=== PATIENT | male | born 1985 | race African-American/Black ===

== ENCOUNTER 2019-09-16 22:46 | Emergency (ER) | payer OTHER ==
[~2019-09-16] VITALS: Ht 182.9 cm; Wt 99.8 kg
--- NOTE | 2019-09-16 22:52 | Emergency Room Report ---
History of Present Illness General Chief Complaint: Possible seizure Source: Patient, EMS (Brian Taylor MD) Present Illness HPI Disclaimer: Please note that this report is being documented using DRAGON technology. This can lead to erroneous entry secondary to incorrect interpretation by the dictating instrument. HPI: 33-year-old male with no reported medical history presents for evaluation of possible seizure. Patient states he went to bed approximately 9:30 PM but was awakened by his girlfriend approximately 30 minutes prior to arrival. She describes some rhythmic jerking in his extremities and noted some minor blood coming out of his mouth. She was able to wake him up but he was reportedly groggy. Patient has no recollection of this. On EMS arrival he was awake alert and conversant. He is complaining of bilateral posterior shoulder pain difficulty abducting his arms. He denies any recent fall or injury though approximately 3 months ago he had a syncopal episode and was seen at outside hospital. They recommended head imaging at this time which he has not yet followed up on. He does not see a PMD regularly. Currently denies any headache , visual changes, neck or back pain, nausea, vomiting, diarrhea. He reports 1- 2 beers a day but denies heavy alcohol use. He drank 1 beer and 1 hard seltzer earlier today. Denies drug use. No prior history of seizure-like activity. Does not take any medications. PMH: Denies PSH: Denies Allergies: Denies Social Hx: Regular alcohol use (Brian Taylor MD) Allergies: Coded Allergies: No Known Allergies (Unverified , 09/16/19) Review of Systems All Other Systems: negative except mentioned in HPI (Brian Taylor MD) Physical Exam Vital Signs Date Time Temp Pulse Resp B/P (MAP) Pulse Ox O2 Delivery O2 Flow Rate FiO2 09/16/19 22:46 98.8 88 20 147/68 (94) 97 Room Air General: Awake and alert, no acute distress HEENT: NC/AT. EOMI. PERRLA. Visual desir are full. No nystagmus. Facial expressions are symmetrical. No facial droop. Abrasions over the right side of the tongue. No large lacerations noted. Cardiovascular: RRR. S1 and S2 normal. No murmur appreciated Resp: Normal work of breathing. No cough, wheezing or crackles appreciated Abdomen: Abdomen is soft, nondistended. Nontender Skin: Intact. No abrasions, laceration or rash over the exposed skin. Tongue abrasions as described above MSK: Normal tone and bulk. Moving all extremities. No obvious deformity though patient's body habitus makes it difficult to fully appreciate. Patient has difficulty with abduction of both shoulders. Tender palpation of the posterior aspect of the shoulders. No tenderness over the superior, inferior or anterior aspect. Sensation is intact distally. No pain in the elbows, wrists or digits. Neuro: Awake and alert. Mentating appropriately. Facial expression symmetrical. No dysarthria, no ataxia on [id number]-[id number]-[id number] or gnpt-lj-[id number] testing. Sensation to light touch is intact over the upper and lower extremities. The patient has intact speech with good repetition, comprehension. Fund of knowledge is full. (Brian Taylor MD) Procedures Joint Reduction Joint Reduction : Consent: Written Joint Reduction Site: shoulder (R), shoulder (L) Procedural Sedation: Yes Reduction Attempts: Other - 1 attempt right shoulder, 2 attempts left shoulder Pre-Procedure NV Exam: Yes Post-Procedure NV Exam: Yes Post Joint Reduction Film: Right shoulder successfully reduced first attempt , left shoulder not reduced after 2 attempts Patient Tolerated: Well Complications: None (Brian Taylor MD) Procedural Sedation Consent: Written Time out called at: 01:45 Airway Assessment (Malampati): I Heart: normal Lungs: normal Plan for Moderate Sedation: Propofol ASA Score: I Procedure Narrative Patient went procedural sedation with 50 mg ketamine and a total of 400 mg propofol given multiple intervals. See nursing documentation for full details. Start time for sedation was 0145 and end time was 0224. Patient returned to presedation neurologic baseline immediately after. No vomiting, no nausea, no respiratory depression, no apnea, no complications of any kind. Tolerated well. Start Time: 01:45 End Time: 02:24 Mental Status: Awake Respiration: Unlabored Nausea: NO Vomiting: NO Additional Comments: Sedation #2 Start time 0429 Total of 180 mg propofol given in divided doses, see nursing documentation for full details End time: 044 Total time: 12 minutes No complications. No apnea. No vomiting. No nausea. Patient returned to his full neurologic baseline Performed by co, Dr. Brian Taylor (Brian Taylor MD) Medical Decision Making Diagnostic Impression: Primary Impression: Seizure Additional Impressions: Dislocation of shoulder, posterior, right, closed Dislocation of shoulder, posterior, left, closed ER Course This is a 33-year-old male arriving by EMS for evaluation of possible seizure. Concern for focal and generalized seizure, alcohol withdrawal, drug use, electrolyte abnormality, intracranial lesion. He has an abrasion to his tongue, reported postictal phase now resolved but no urinary incontinence was noted. No prior history of seizure. He does report a recent head injury 3 months ago has not yet obtained outpatient CT scan or followed up with a PMD. Will obtain CT scan of the head, load with Keppra, draw broad labs and obtain bilateral x- rays of the shoulder for concern of possible dislocation in the setting of possible seizure. 0430: CT scan of the head and labs returned within normal limits. X-ray of his shoulders were concerning for bilateral posterior dislocation. CT scan confirmed showing reverse Hill-Sachs deformities and subluxation posteriorly. Patient underwent sedation using ketamine and propofol. Initial x-rays show adequate reduction of the right shoulder however the left shoulder remained subluxed. Attempted to reduce again under moderate sedation however this attempt was unsuccessful. Patient returned to his neurologic baseline. 0630: Reevaluated patient at bedside for possible repeat attempt at reduction however the patient states his pain improved. While he was asleep he may have reduced on his own. He is now able to range the left upper extremity. No palpable deformity. Repeat x-ray is pending. Will sign out to oncoming physician pending x-ray and final disposition. Laboratory Tests Test 09/16/19 22:57 09/16/19 23:23 White Blood Count 10.6 K/UL (4.8-10.8) Red Blood Count 4.66 M/UL (4.70-6.10) L Hemoglobin 14.6 G/DL (14.2-18.0) Hematocrit 44.1 % (42.0-52.0) Mean Corpuscular Volume 94 FL (80-99) Mean Corpuscular Hemoglobin 31.3 PG (27.0-31.0) H Mean Corpuscular Hemoglobin Concent 33.1 G/DL (32.0-36.0) Red Cell Distribution Width 13.5 % (11.6-14.8) Platelet Count 180 K/UL (150-450) Mean Platelet Volume 10.0 FL (6.5-10.1) Neutrophils (%) (Auto) 58.7 % (45.0-75.0) Lymphocytes (%) (Auto) 30.6 % (20.0-45.0) Monocytes (%) (Auto) 4.5 % (1.0-10.0) Eosinophils (%) (Auto) 5.2 % (0.0-3.0) H Basophils (%) (Auto) 1.1 % (0.0-2.0) Sodium Level 137 MMOL/L (136-145) Potassium Level 3.9 MMOL/L (3.5-5.1) Chloride Level 101 MMOL/L (98-107) Carbon Dioxide Level 26 MMOL/L (21-32) Anion Gap 10 mmol/L (5-15) Blood Urea Nitrogen 13 mg/dL (7-18) Creatinine 1.5 MG/DL (0.55-1.30) H Estimated Glomerular Filtration Rate > 60 mL/min (>60) Glucose Level 118 MG/DL (74-106) H Calcium Level 8.9 MG/DL (8.5-10.1) Total Bilirubin 0.3 MG/DL (0.2-1.0) Aspartate Amino Transferase (AST) 21 U/L (15-37) Alanine Aminotransferase (ALT) 27 U/L (12-78) Alkaline Phosphatase 51 U/L (46-116) Total Creatine Kinase 218 U/L (26-308) Troponin I 0.000 ng/mL (0.000-0.056) Total Protein 8.2 G/DL (6.4-8.2) Albumin 4.0 G/DL (3.4-5.0) Globulin 4.2 g/dL Albumin/Globulin Ratio 1.0 (1.0-2.7) Serum Alcohol < 3 mg/dL Urine Color Pale yellow Urine Appearance Clear Urine pH 6.5 (4.5-8.0) Urine Specific [place] 1.025 (1.005-1.035) Urine Protein 1+ (NEGATIVE) H Urine Glucose (UA) Negative (NEGATIVE) Urine Ketones 1+ (NEGATIVE) H Urine Blood 1+ (NEGATIVE) H Urine Nitrite Negative (NEGATIVE) Urine Bilirubin Negative (NEGATIVE) Urine Urobilinogen Normal MG/DL (0.0-1.0) Urine Leukocyte Esterase Negative (NEGATIVE) Urine RBC 0-2 /HPF (0 - 0) H Urine WBC 0 /HPF (0 - 0) Urine Squamous Epithelial Cells None /LPF (NONE/OCC) Urine Bacteria None /HPF (NONE) Urine Opiates Screen Negative (NEGATIVE) Urine Barbiturates Screen Negative (NEGATIVE) Phencyclidine (PCP) Screen Negative (NEGATIVE) Urine Amphetamines Screen Negative (NEGATIVE) Urine Benzodiazepines Screen Negative (NEGATIVE) Urine Cocaine Screen Negative (NEGATIVE) Urine Marijuana (THC) Screen Positive (NEGATIVE) H (Brian Taylor MD) ER Course Patient signed out to me pending repeat x-ray. Patient had bilateral posterior shoulder dislocations reduced by previous physician. There was some concern for persistent dislocation of the left shoulder however on our assessment this morning patient had good range of motion and pain had dramatically improved. Repeat x-ray of the left shoulder appeared to have improved alignment to me. Patient was placed in bilateral shoulder immobilizers. Regarding his seizures he was started on Keppra. He will be discharged with pain control. I discussed the case with orthopedics, Dr. Mckeon who recommended immobilization for 2 weeks and urgent orthopedic follow-up. Patient was instructed to call his primary physician and insurance to assist in arranging outpatient follow-up. Patient stable for discharge with return precautions. (Jose David Ba M.D.) EKG Diagnostic Results EKG Time: 22:50 Rate: normal Rhythm: NSR Other Impression Sinus rhythm, normal axis, normal intervals, isolated Q wave in III. Otherwise normal EKG. (Brian Taylor MD) Rhythm Strip Diag. Results Rhythm Strip Time: 22:50 EP Interpretation: yes Rate: 70s Rhythm: NSR, no PVC's, no ectopy (Brian Taylor MD) Other X-Ray Diagnostic Results Other X-Ray Diagnostic Results #1: X-Ray ordered: Left shoulder # of Views/Limited Vs Complete: Complete Indication: Pain EP Interpretation: Yes Interpretation: no soft tissue swelling, no fractures, other - Concern for posterior dislocation Impression: Other - Posterior dislocation Electronically Signed by: Electronically signed by Dr. Brian Taylor Other X-Ray Diagnostic Results #2: X-Ray ordered: Right shoulder # of Views/Limited Vs Complete: Complete Indication: Pain EP Interpretation: Yes Interpretation: no soft tissue swelling, no fractures, other - Concern for posterior dislocation Impression: Other - Posterior dislocation Electronically Signed by: Electronically signed by Dr. Brian Taylor Other X-Ray Diagnostic Results #3: X-Ray ordered: Right shoulder post reduction Indication: Other EP Interpretation: Yes Interpretation: other - Reverse Hill-Sachs deformity, satisfactory reduction of posterior dislocation Impression: Other - Satisfactory reduction of posterior dislocation with reverse Hill-Sachs deformity Electronically Signed by: Electronically signed by Dr. Brian Taylor Other X-Ray Diagnostic Results #4: X-Ray ordered: Left shoulder post reduction #1 # of Views/Limited Vs Complete: Complete Indication: Pain EP Interpretation: Yes Interpretation: no soft tissue swelling, other - Persistent subluxation left humeral head with reverse Hill-Sachs deformity Impression: Other - Persistent posterior dislocation with reverse Hill- Sachs deformity Electronically Signed by: Electronically signed by Dr. Brian Taylor (Brian Taylor MD) Disposition: HOME, SELF-CARE Condition: Improved Scripts Hydrocodone Bit/Acetaminophen 5-325* (NORCO 5-325 TABLET*) 1 Each Tablet 1 TAB ORAL Q6H PRN for FOR PAIN, #10 TAB 0 Refills Prov: Jose David aB M.D. 09/17/19 Ibuprofen* (MOTRIN*) 600 Mg Tablet 600 MG ORAL Q6H PRN for For Pain, #30 TAB 0 Refills Prov: Jose David Ba M.D. 09/17/19 Levetiracetam (KEPPRA) 500 Mg Tablet 500 MG ORAL EVERY 12 HOURS for 30 Days, #60 TAB 0 Refills Prov: Jose David Ba M.D. 09/17/19 Brian Taylor MD Sep 16, 2019 22:52 Jose David Ba M.D. Sep 17, 2019 07:49
--- NOTE | 2019-09-16 22:59 | NUR ---
ED Nurse Note: Seizure precautions initiated, seizure pads applied. patient on monitor, no acute distress noted.
--- NOTE | 2019-09-16 22:59 | NUR ---
ED Nurse Note: Patient brought in by ambulance [id number] from home d/t witnessed possible seizure, per EMS patient's girlfriend witnessed facial seizure movement approximately 30 minutes in duration. Patient aao x 4 and ambulatory upon arrival. Patient no reports of medical history, pt states this was the first time he has had a possible seizure. Patient c/o shoulder pain aching 10/10, unable to move upper extremities d/t pain, nonradiating, states it is a first time occurrence. Patient placed on monitor and changed into gown. No acute distress noted during assessment. Patient taken to CT. IV established by CEASAR Alvarado. Blood samples sent to lab.
[2019-09-16 23:01] VITALS: BP 148/101
[2019-09-16 23:16] LABS: BASOPHILS % (AUTO) 1.1 % (0.0-2.0); EOSINOPHILS % (AUTO) 5.2 % (0.0-3.0); HEMATOCRIT 44.1 % (42.0-52.0); HEMOGLOBIN 14.6 G/DL (14.2-18.0); LYMPHOCYTES % (AUTO) 30.6 % (20.0-45.0); MEAN CORPUSCULAR VOLUME 94 FL (80-99); MONOCYTES % (AUTO) 4.5 % (1.0-10.0); NEUTROPHILS % (AUTO) 58.7 % (45.0-75.0); PLATELET COUNT 180 K/UL (150-450); RED BLOOD COUNT 4.66 M/UL (4.70-6.10); RED CELL DISTRIBUTION WIDTH 13.5 % (11.6-14.8); WHITE BLOOD COUNT 10.6 K/UL (4.8-10.8)
--- NOTE | 2019-09-16 23:22 | NUR ---
ED Nurse Note: Patient returned from CT in stable condition and placed back on cardiac tech.
[2019-09-16 23:27] LABS: ANION GAP 10 mmol/L (5-15); BLOOD UREA NITROGEN 13 mg/dL (7-18); CALCIUM 8.9 MG/DL (8.5-10.1); CARBON DIOXIDE 26 MMOL/L (21-32); CHLORIDE 101 MMOL/L (98-107); CREATININE 1.5 MG/DL (0.55-1.30); POTASSIUM 3.9 MMOL/L (3.5-5.1); SODIUM 137 MMOL/L (136-145)
[2019-09-16 23:31] LABS: ALANINE AMINOTRANSFERASE 27 U/L (12-78); ALKALINE PHOSPHATASE 51 U/L (46-116); ASPARTATE AMINO TRANSFERASE 21 U/L (15-37); BILIRUBIN,TOTAL 0.3 MG/DL (0.2-1.0)
--- NOTE | 2019-09-16 23:43 | Diagnostic Imaging Report ---
ADDENDUM - Added by Fan Martin M.D. on 09/16/2019 11:50 PM (-07:00) No acute intracranial pathology or acute calvarial fracture. EXAM: CT Head Without Intravenous Contrast CLINICAL HISTORY: SZ TECHNIQUE: Axial computed tomography images of the head/brain without intravenous contrast. CTDI is 53.4 mGy and DLP is 1014.5 mGy-cm. One or more of the following dose reduction techniques were used: automated exposure control, adjustment of the mA and/or kV according to patient size, use of iterative reconstruction technique. COMPARISON: No relevant prior studies available. FINDINGS: Brain: Unremarkable. No hemorrhage. No significant white matter disease. No edema. Ventricles: Unremarkable. No ventriculomegaly. Bones/joints: Unremarkable. No acute fracture. Soft tissues: Unremarkable. Sinuses: Unremarkable as visualized. No acute sinusitis. Mastoid air cells: Unremarkable as visualized. No mastoid effusion. IMPRESSION: No acute or inflammatory disease or bowel obstruction.
[2019-09-16] MEDS ORDERED: levETIRAcetam 1,000mg/NS100ml 100 ML IVPB ONE (23:45)
[2019-09-16] MEDS ORDERED: Morphine Sulfate 2mg/ml Inj(IV/IM USE ONLY) IVP ONE (23:45)
--- NOTE | 2019-09-16 23:51 | Diagnostic Imaging Report ---
EXAM: XR Left Shoulder Complete, 2 or More Views CLINICAL HISTORY: PAIN TECHNIQUE: Two or more views of the left shoulder. COMPARISON: No relevant prior studies available. FINDINGS: Bones/joints: Unremarkable. No acute fracture. No dislocation. Soft tissues: Unremarkable. IMPRESSION: Normal left shoulder x-rays.
--- NOTE | 2019-09-16 23:52 | Diagnostic Imaging Report ---
EXAM: XR Right Shoulder Complete, 2 or More Views CLINICAL HISTORY: PAIN TECHNIQUE: Two or more views of the right shoulder. COMPARISON: No relevant prior studies available. FINDINGS: Bones/joints: Unremarkable. No acute fracture. No dislocation. Soft tissues: Unremarkable. IMPRESSION: Normal right shoulder x-rays.
[2019-09-16 23:55] LABS: CREATINE KINASE 218 U/L (26-308)
[2019-09-16 23:55] LABS: APPEARANCE,URINE CLEAR; BILIRUBIN, URINE NEGATIVE (NEGATIVE); COLOR,URINE PALE YELLOW; GLUCOSE, URINE (UA) NEGATIVE (NEGATIVE); KETONES,URINE 1+ (NEGATIVE); LEUKOCYTE ESTERASE ,URINE NEGATIVE (NEGATIVE); NITRITE,URINE NEGATIVE (NEGATIVE); PH,URINE 6.5 (4.5-8.0); PROTEIN,URINE 1+ (NEGATIVE); UROBILINOGEN,URINE NORMAL MG/DL (0.0-1.0)
[2019-09-17] MEDS ORDERED: Morphine Sulfate 4mg/ml Inj (IV USE ONLY) ONE (00:20)
[2019-09-17] MEDS ORDERED: Morphine Sulfate 4mg/ml Inj (IV USE ONLY) IVP ONE (00:30)
[2019-09-17] MEDS ORDERED: Miralax 17gm pkt ORAL PRN (00:45)
[2019-09-17] MEDS ORDERED: Zolpidem 5mg tab ORAL PRN (00:45)
--- NOTE | 2019-09-17 01:04 | NUR ---
ED Nurse Note: Reassessed patient's pain level, per pt pain 10/10, ERMD made aware.
--- NOTE | 2019-09-17 01:20 | Diagnostic Imaging Report ---
EXAM: CT Right Upper Extremity Without Intravenous Contrast, Shoulder CLINICAL HISTORY: PAIN TECHNIQUE: Axial computed tomography images of the right shoulder without intravenous contrast. CTDI is 13 mGy and DLP is 368 mGy-cm. One or more of the following dose reduction techniques were used: automated exposure control, adjustment of the mA and/or kV according to patient size, use of iterative reconstruction technique. COMPARISON: No relevant prior studies available. FINDINGS: Bilateral posteriorly subluxed humeral head with reverse Hill-Sachs fracture the pulmonary that are engaged onto the posterior glenoid rim. No other acute or healing fracture or malalignment. Visualized lungs are clear. No significant hemorrhage or hematoma. No other soft tissue abnormalities. IMPRESSION: Bilateral posteriorly subluxed humeral head with reverse Hill-Sachs fracture the pulmonary that are engaged onto the posterior glenoid rim.
[2019-09-17] MEDS ORDERED: Ketamine HCl 50mg/ml 1ml Syr IV ONE (01:30)
[2019-09-17 01:45] VITALS: BP 151/99
--- NOTE | 2019-09-17 02:00 | NUR ---
ED Nurse Note: Verbal order for additional propofol 50mg per Dr. Taylor.
[2019-09-17] MEDS ORDERED: propofoL 1,000mg/100ml 0 ML IV ONE (02:20)
--- NOTE | 2019-09-17 02:24 | NUR ---
ED Nurse Note: Initially pulled 200mg/20ml Propofol bottle from Pyxis, ERMD determined patient needed additional sedation. Pulled an extra 200mg/20ml Protofol bottle from Pyxis and administered a total of 400mg of Propofol.
--- NOTE | 2019-09-17 02:24 | NUR ---
ED Nurse Note: Bilateral shoulder immobilizers applied by mail technician.
--- NOTE | 2019-09-17 03:03 | Diagnostic Imaging Report ---
EXAM: XR Left Shoulder Complete, 2 or More Views CLINICAL HISTORY: POST-OP TECHNIQUE: Two or more views of the left shoulder. COMPARISON: 09/17/2019 IMPRESSION: The humeral head still appears to be slightly posteriorly subluxated in relation to the glenoid on these 2 views. Reverse [place] Sachs deformity is seen.
--- NOTE | 2019-09-17 03:04 | Diagnostic Imaging Report ---
EXAM: XR Right Shoulder Complete, 2 or More Views CLINICAL HISTORY: POST-OP TECHNIQUE: Two or more views of the right shoulder. COMPARISON: 09/16/2019 IMPRESSION: Appears appropriately reduced. Reverse Hill-Sachs deformity is seen.
--- NOTE | 2019-09-17 03:09 | NUR ---
ED Nurse Note: Patient resting in bed, aao x 4 and able to make needs known. Patient presents with spontaneous eye opening. No acute distress noted during assessment.
[2019-09-17] MEDS ORDERED: propofoL 1,000mg/100ml 100 ML IV ONE ×2 (04:22→06:15)
[2019-09-17 04:29] VITALS: BP 181/74
--- NOTE | 2019-09-17 04:29 | NUR ---
ED Nurse Note: ERMD ordered additional propofol for second attempt at moderate sedation. Pyxis is out of 200mg/20ml bottles. Pulled 1000mg/100ml bottle and administered a total of 180mg of Propofol, this episode of moderate sedation procedure ended at 0441.
[2019-09-17] MEDS ORDERED: KEPPRA500 M4 ORAL ×2 (06:07→07:42)
[2019-09-17] MEDS ORDERED: IBUPROFEN600 M1 ORAL ×2 (06:41→07:42)
[2019-09-17] MEDS ORDERED: NORCO 5-325 TA1 EAC1 ORAL ×2 (06:41→07:42)
--- NOTE | 2019-09-17 07:05 | NUR ---
HAND-OFF: Report given to CEASAR Camacho.
[2019-09-17 08:00] VITALS: BP 129/89
--- NOTE | 2019-09-17 08:00 | NUR ---
ER DISCHARGE NOTE:pt. was placed in arms immobilizer Patient is cleared to be discharged per ERMD, pt is aox4, on room air, with stable vital signs. pt was given dc and prescription instructions, pt was able to verbalize understanding, pt id band and iv site removed without complications. pt is able to ambulate with steady gait. pt took all belongings, picked up by his friend
[2019-09-17] MEDS ORDERED: Heparin 5000 units/ml inj SUBQ SCH (09:00)
--- NOTE | 2019-09-17 09:34 | Diagnostic Imaging Report ---
EXAM: X-RAY XRAY Shoulder Compl L CLINICAL HISTORY: Shoulder pain. COMPARISON: Prior x-rays and CT of the shoulder at 0 720 FINDINGS: Total of 3 views of the left shoulder were obtained. Alignment of the glenohumeral joint is grossly anatomic. Small cortical step-off related to the reverse Hill-Sachs deformity demonstrated. AC joint is congruent. Surrounding soft tissue is normal. IMPRESSION: CORTICAL STEP-OFF RELATED TO THE REVERSE HILL-SACHS DEFORMITY AGAIN DEMONSTRATED. NO ACUTE DISLOCATION SEEN PRESENTLY.
--- NOTE | 2019-09-17 10:27 | Diagnostic Imaging Report ---
EXAM: X-RAY XRAY Shoulder Compl L CLINICAL HISTORY: Shoulder pain. COMPARISON: None FINDINGS: Total of 2 views of the left shoulder were obtained. Alignment is grossly anatomic. Reverse Hill-Sachs deformity noted. AC joint is congruent. Surrounding soft tissue is normal. 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
== END 2019-09-17 08:17 | disposition home or self-care (01) ==
LOC: EDBD 22:46 → EMR 23:01
DX: G40.909 Epilepsy, unspecified, not intractable, without status epilepticus (principal); S43.005A Unspecified dislocation of left shoulder joint, initial encounter; S43.004A Unspecified dislocation of right shoulder joint, initial encounter; X58.XXXA Exposure to other specified factors, initial encounter; Y92.9 Unspecified place or not applicable; S00.512A Abrasion of oral cavity, initial encounter
CPT/HCPCS: 23650; 36415; 70450; 73030; 73200; 80053; 80307; 81003; 82550; 84484; 85025; 93005; 96361; 96374; 96375; 96376; G0480; J1953; J2270; J2704; J7030; Z7502; 99285